=== PATIENT | female | born 1970 | race Caucasian/White ===

== ENCOUNTER → 2017-09-10 | Outpatient (CLI) | payer BC ==
[~2017-09-10] MED LIST: LIDOCAINE 1% 5ML-MPF INJ ONE; LIDOCAINE HCL 1% LOCAL INJ 20 ML VIAL ONE
--- NOTE | 2017-09-10 09:55 | Diagnostic Imaging Report ---
Ultrasound-guided thyroid biopsy 09/10/2017 Pre-Procedure Diagnosis: Right thyroid nodule Post-procedure Diagnosis:Right thyroid nodule Scoop Driver: Torsten Richmond Annual Giving Director: None Sedation: None. 1% lidocaine local anesthesia. Estimate blood loss: <5 mL Blood administered: None Complications: None Implants/Grafts: None Specimen: 25-gauge needle biopsy x 4 Procedure: Informed consent was obtained and the patient positioned supine in the ultrasound suite. A timeout was performed, followed by preliminary ultrasound of the thyroid. The neck was prepped and draped in standard sterile fashion. Using real-time ultrasound guidance a 25-gauge needle was advanced into the thyroid nodule of interest. An image was stored in the electronic medical record. The sample was submitted to pathology for adequacy review. The procedure was repeated an additional 3 times, using identical technique with image capture for the medical record. At the end of the procedure a sterile dressing was applied. Findings: 2.1 cm right thyroid nodule. Impression: Successful ultrasound-guided right thyroid nodule needle biopsy. This report was generated with voice-recognition technology. Errors in manual arts therapy teacher can occur. Please interpret accordingly and contact a radiologist if there are any questions regarding the report. Signed by: Dr. Vipul Richmond M.D. on 09/10/2017 9:51 AM
--- NOTE | 2017-09-10 09:55 | Diagnostic Imaging Report ---
Ultrasound-guided thyroid biopsy 09/10/2017 Pre-Procedure Diagnosis: Right thyroid nodule Post-procedure Diagnosis:Right thyroid nodule Leather Worker: Torsten Richmond Stitchdowns Toe Former: None Sedation: None. 1% lidocaine local anesthesia. Estimate blood loss: <5 mL Blood administered: None Complications: None Implants/Grafts: None Specimen: 25-gauge needle biopsy x 4 Procedure: Informed consent was obtained and the patient positioned supine in the ultrasound suite. A timeout was performed, followed by preliminary ultrasound of the thyroid. The neck was prepped and draped in standard sterile fashion. Using real-time ultrasound guidance a 25-gauge needle was advanced into the thyroid nodule of interest. An image was stored in the electronic medical record. The sample was submitted to pathology for adequacy review. The procedure was repeated an additional 3 times, using identical technique with image capture for the medical record. At the end of the procedure a sterile dressing was applied. Findings: 2.1 cm right thyroid nodule. Impression: Successful ultrasound-guided right thyroid nodule needle biopsy. This report was generated with voice-recognition technology. Errors in fisher sponge hooking can occur. Please interpret accordingly and contact a radiologist if there are any questions regarding the report. Signed by: Dr. Vipul Richmond M.D. on 09/10/2017 9:51 AM
== END ==
LOC: US 07:54
PROVIDERS: ATTEND Otolaryngology
DX: E04.2 Nontoxic multinodular goiter (principal)
CPT/HCPCS: 10022; 76942; 88112; 88305; J2001; 88172; 88173